=== PATIENT | male | born 1990 | race Caucasian/White ===

== ENCOUNTER 2023-11-20 19:48 | Emergency (ER) | payer MEDICAID ==
[~2023-11-20] VITALS: Ht 165.1 cm; Wt 84.0 kg
[2023-11-20 19:52] VITALS: O2SAT 98
[2023-11-20] MEDS ORDERED: ACETAMINOPHEN 325MG TABLET PO ONE (20:15)
[2023-11-20] MEDS ORDERED: IBUP-2029 MT (20:36)
[2023-11-20 20:41] VITALS: BP 113/69; PULSE 108; RESP 11; TEMP 97.8
[2023-11-20] MEDS ORDERED: ACETAMINOPHEN 325MG TABLET PO NR (23:00)
== END 2023-11-20 20:43 | disposition home or self-care (01) ==
LOC: ER 19:56
DX: S80.01XA Contusion of right knee, initial encounter (principal); F20.9 Schizophrenia, unspecified; X58.XXXA Exposure to other specified factors, initial encounter; Y93.89 Activity, other specified; Y92.89 Other specified places as the place of occurrence of the external cause; Y99.8 Other external cause status
CPT/HCPCS: 73560; 99283

== ENCOUNTER 2024-06-13 15:17 | Emergency (ER) | payer MEDICAID ==
[~2024-06-13] VITALS: Ht 185.4 cm; Wt 90.0 kg
[~2024-06-13 15:17] MED LIST: IBUP-2029 MT
[2024-06-13 15:21] VITALS: O2SAT 99
[2024-06-13] MEDS: ZIPRASIDONE MESYLATE 20MG/VIAL IM STA (15:59)
[2024-06-13 16:21] LABS: BASOPHILS % 0.7 % (0.0-2.0); EOSINOPHILS % 3.4 % (0.0-5.0); HEMATOCRIT. 46.8 % (42.0-52.0); HEMOGLOBIN. 15.6 g/dL (14.0-18.0); LYMPHOCYTES % 43.9 % (20.0-50.0); MEAN CORPUSCULAR HEMOGLOBIN 32.3 pg (28.0-32.0); MEAN CORPUSCULAR HGB CONC 33.4 g/dL (31.0-37.0); MEAN CORPUSCULAR VOLUME 96.4 fL (80.0-94.0); MEAN PLATELET VOLUME 7.9 fl (7.4-10.4); MONOCYTES % 5.7 % (2.0-8.0); NEUTROPHILS % 46.3 % (40.0-76.0); PLATELET 171 x1000/uL (130-400); RED BLOOD CELL COUNT 4.85 mill/uL (4.7-6.1); RED CELL DISTRIBUTION WIDTH 13.5 % (11.6-14.6); WHITE BLOOD COUNT 4.5 x1000/uL (4.5-11.0)
[2024-06-13 16:38] LABS: CHLORIDE 108 mEq/L (98-107); POTASSIUM 3.9 mEq/L (3.5-5.1); SODIUM 142 mEq/L (136-145)
[2024-06-13 16:39] LABS: CALCIUM 9.5 mg/dL (8.7-10.4); CARBON DIOXIDE 20 mEq/L (21-32)
[2024-06-13 16:44] LABS: CREATININE 0.9 mg/dL (0.6-1.3); GLUCOSE 87 mg/dL (70-105); UREA NITROGEN BLOOD 8 mg/dL (9-23)
[2024-06-13 16:45] LABS: ETHANOL BLOOD 255 mg/dL (<10)
[2024-06-13 16:46] LABS: ACETAMINOPHEN < 2 ug/mL (10-30)
[2024-06-13 17:14] LABS: *AMPHETAMINES SCREEN URINE PRESUMPTIVE POSITIVE (NEGATIVE); *BARBITURATES SCREEN URINE NEGATIVE (NEGATIVE); *BENZODIAZEPINES SCREEN URINE NEGATIVE (NEGATIVE); *COCAINE SCREEN URINE NEGATIVE (NEGATIVE); METHADONE URINE SCREEN NEGATIVE (NEGATIVE); OPIATES URINE SCREEN NEGATIVE (NEGATIVE); PHENCYCLIDINE URINE SCREEN NEGATIVE (NEGATIVE)
[2024-06-13 17:15] LABS: CANNABINOID URINE SCREEN NEGATIVE (NEGATIVE); ECSTASY MDMA SCREEN URINE NEGATIVE (NEGATIVE)
[2024-06-13 19:45] VITALS: BP 122/76; PULSE 87; RESP 20; TEMP 36.8; O2SAT 100
== END 2024-06-13 19:47 | disposition home or self-care (01) ==
LOC: ER 15:17
DX: G92.9 Unspecified toxic encephalopathy (principal); R45.1 Restlessness and agitation; F20.9 Schizophrenia, unspecified; F15.90 Other stimulant use, unspecified, uncomplicated; Z79.899 Other long term (current) drug therapy
CPT/HCPCS: 80305; 80048; 80307; 80329; 80320; 85025; 36415; 96372; 99291; J3486; Z7610; G0480

== ENCOUNTER 2025-01-30 08:09 | Emergency (ER) | payer BC, MEDICAID ==
[~2025-01-30] VITALS: Ht 182.9 cm; Wt 113.0 kg
[~2025-01-30 08:09] MED LIST changes: +IBUP-1455 MT; -IBUP-2029 MT
[2025-01-30 08:12] VITALS: O2SAT 100
[2025-01-30] MEDS ORDERED: KETOROLAC 15MG/ML VIAL IV ONE (12:30)
[2025-01-30] MEDS ORDERED: PANTOPRAZOLE SODIUM 40 MG/VIAL IV ONE (12:30)
[2025-01-30] MEDS ORDERED: SODIUM CHLORIDE 0.9% 1,000 ML IV ONE (12:30)
[2025-01-30] MEDS ORDERED: ONDANSETRON HCL 4MG/2ML INJ IV ONE (12:30)
[2025-01-30 12:41] VITALS: BP 131/90; PULSE 100; RESP 18; TEMP 37.1; O2SAT 98
[2025-01-30] MEDS ORDERED: PROT40 MT (12:46)
[2025-01-30] MEDS: FAMOTIDINE 20MG TABLET PO ONE (12:52)
[2025-01-30 12:53] LABS: BASOPHILS % 0.8 % (0.0-2.0); EOSINOPHILS % 1.2 % (0.0-5.0); HEMATOCRIT. 42.9 % (42.0-52.0); HEMOGLOBIN. 14.6 g/dL (14.0-18.0); LYMPHOCYTES % 39.5 % (20.0-50.0); MEAN PLATELET VOLUME 6.7 fl (7.4-10.4); MONOCYTES % 8.1 % (2.0-8.0); NEUTROPHILS % 50.4 % (40.0-76.0); PLATELET 196 x1000/uL (130-400); RED BLOOD CELL COUNT 4.59 mill/uL (4.7-6.1); RED CELL DISTRIBUTION WIDTH 13.8 % (11.6-14.6)
[2025-01-30] MEDS: MAGNESIUM/ALUMINUM HYDROXIDE/SIMETHICONE 30ML UDC PO ONE (12:53)
[2025-01-30] MEDS: VISCOUS LIDOCAINE 2% 15 ML UDC MM ONE (12:54)
[2025-01-30 13:07] LABS: CREATININE 0.9 mg/dL (0.6-1.3); UREA NITROGEN BLOOD 7 mg/dL (9-23)
[2025-01-30 13:09] LABS: ASPARTATE AMINOTRANSFERASE 76 IU/L (<34); BILIRUBIN DIRECT 0.2 mg/dL (<=3.0); BILIRUBIN TOTAL 0.6 mg/dL (0.1-1.0); PROTEIN TOTAL 6.9 g/dL (6.0-8.3)
== END 2025-01-30 13:12 | disposition home or self-care (01) ==
LOC: ER 08:09
DX: K21.9 Gastro-esophageal reflux disease without esophagitis (principal); F19.11 Other psychoactive substance abuse, in remission; F20.9 Schizophrenia, unspecified; Z79.899 Other long term (current) drug therapy
CPT/HCPCS: 36415; 80048; 80076; 80320; 85025; 99284; J7030; G0480